=== PATIENT | male | born 1970 | race Caucasian/White ===

== ENCOUNTER → 2019-03-22 | Outpatient (CLI) | payer BC, OTHER ==
[~2019-03-22] MED LIST: MULT-658 PO
[2019-03-22 15:20] LABS: BASOPHILS # (AUTO) 0.02 x10^3/uL (0-0.1); BASOPHILS % (AUTO) 0 % (0-1); EOSINOPHILS # (AUTO) 0.04 x10^3/uL (0-0.4); EOSINOPHILS % (AUTO) 1 % (1-7); LYMPHOCYTES # (AUTO) 2.07 x10^3/uL (1-3.4); LYMPHOCYTES % (AUTO) 27 % (22-44); MD NO; MEAN CORPUSCULAR HEMOGLOBIN 28.6 pg (27.5-34.5); MEAN CORPUSCULAR HGB CONC 33.6 g/dL (33.2-36.2); MEAN PLATELET VOLUME 7.9 fL (7.4-10.4); MONOCYTES # (AUTO) 0.57 x10^3/uL (0.2-0.8); MONOCYTES % (AUTO) 7 % (2-9); NEUTROPHILS # (AUTO) 4.96 x10^3/uL (1.8-6.8); NEUTROPHILS % (AUTO) 65 % (42-75); PLATELET COUNT 237 x10^3/uL (130-400); RED BLOOD COUNT 5.34 x10^6/uL (4.38-5.82); RED CELL DISTRIBUTION WIDTH 13.5 % (9.4-14.8)
[2019-03-22 15:24] LABS: ALANINE AMINOTRANSFERASE 48 U/L (12-78); ALBUMIN 4.1 g/dL (3.4-5.0); ANION GAP 6 mmol/L (5-15); CHLORIDE 107 mmol/L (98-107)
[2019-03-22 15:27] LABS: ALKALINE PHOSPHATASE 85 U/L (45-117); BILIRUBIN,TOTAL 0.3 mg/dL (0.2-1.0); CREATININE 0.94 mg/dL (0.7-1.3); TOTAL PROTEIN 7.9 g/dL (6.4-8.2)
== END | disposition home or self-care (01) ==
LOC: STAR 14:05
PROVIDERS: ATTEND Surgery
DX: Z01.818 Encounter for other preprocedural examination (principal); K57.92 Diverticulitis of intestine, part unspecified, without perforation or abscess without bleeding; R94.31 Abnormal electrocardiogram [ECG] [EKG]
CPT/HCPCS: 36415; 80053; 85025; 93005

== ENCOUNTER 2019-04-03 08:59 | Inpatient (IN) | payer BC, OTHER ==
[~2019-04-03] VITALS: Ht 180.3 cm; Wt 127.0 kg
[2019-04-05 14:24] VITALS: BP 141/88
== END 2019-04-05 14:02 | disposition home or self-care (01) | DRG 331 ==
LOC: ORIP 08:59 → 4NOR 14:57 → DCLOUNGE 04-05 13:27
PROVIDERS: ADMIT Surgery; ATTEND Surgery
PROC: 3E0T3BZ Introduction of Anesthetic Agent into Peripheral Nerves and Plexi, Percutaneous Approach (ICD-10-PCS; 2019-04-03)
PROC: 0DBE4ZZ Excision of Large Intestine, Percutaneous Endoscopic Approach (ICD-10-PCS; principal; 2019-04-04)
PROC: 8E0W4CZ Robotic Assisted Procedure of Trunk Region, Percutaneous Endoscopic Approach (ICD-10-PCS; 2019-04-04)
DX: K57.32 Diverticulitis of large intestine without perforation or abscess without bleeding (principal); E66.9 Obesity, unspecified; Z68.37 Body mass index [BMI] 37.0-37.9, adult; Z88.0 Allergy status to penicillin
CPT/HCPCS: 36415; J3490; 80048; 85025; 86850; 86900; 88307; C1729; G0378; J1100; J1170; J1650; J2250; J2405; J2704; J3010; J0330; J3480; J7120